=== PATIENT | female | born 1990 | race Caucasian/White ===

== ENCOUNTER 2020-12-08 16:40 | Inpatient (IN) ==
[2020-12-08] MEDS ORDERED: Haloperidol Lactate 5 MG/ML VIAL IM PRN (19:16)
[2020-12-08] MEDS ORDERED: Mag Hydrox/Al Hydrox/Simeth 30 ML UDC PO PRN (19:16)
[2020-12-08] MEDS ORDERED: MOM Conc 10 ML UD.LIQ PO PRN (19:16)
[2020-12-08] MEDS ORDERED: *HR* LORazepam 1 MG TABLET PO PRN (19:16)
[2020-12-08] MEDS ORDERED: *HR* LORazepam 2 MG/ML VIAL IM PRN (19:16)
[2020-12-08] MEDS ORDERED: haloperidoL 5 MG TABLET PO PRN (19:16)
[2020-12-08] MEDS ORDERED: Acetaminophen 325 MG TABLET PO PRN (19:16)
[2020-12-08] MEDS: Insulin DETEMIR 100 UNIT/ML X5UNITS SUBQ SCH (21:34)
[2020-12-08] MEDS: hydrOXYzine pamoate 25 MG CAPSULE PO PRN (21:35)
[2020-12-08] MEDS: traZODone 50 MG TABLET PO PRN (21:35)
[2020-12-09] MEDS: lisinopriL 20 MG TABLET PO SCH (09:13)
[2020-12-09] MEDS: hydroCHLOROthiazide 25 MG TABLET PO SCH (09:13)
[2020-12-09] MEDS: *HR* Metformin 500 MG TABLET PO SCH ×2 (09:13→17:04)
[2020-12-09] MEDS ORDERED: Ondansetron ODT 4 MG TAB.RAPDIS SL ONE (17:24)
[2020-12-09] MEDS: hydrOXYzine pamoate 25 MG CAPSULE PO PRN (20:27)
[2020-12-09] MEDS: Insulin DETEMIR 100 UNIT/ML X5UNITS SUBQ SCH (20:41)
[2020-12-10] MEDS: *HR* Metformin 500 MG TABLET PO SCH ×2 (08:59→17:01)
[2020-12-10] MEDS: hydroCHLOROthiazide 25 MG TABLET PO SCH (09:01)
[2020-12-10] MEDS: lisinopriL 20 MG TABLET PO SCH (09:01)
[2020-12-10] MEDS: traZODone 50 MG TABLET PO PRN (20:33)
[2020-12-10] MEDS: hydrOXYzine pamoate 25 MG CAPSULE PO PRN (20:34)
[2020-12-10] MEDS: Insulin DETEMIR 100 UNIT/ML X5UNITS SUBQ SCH (20:34)
[2020-12-11 09:26] VITALS: BP 102/72
[2020-12-11] MEDS: hydroCHLOROthiazide 25 MG TABLET PO SCH (09:49)
[2020-12-11] MEDS: lisinopriL 20 MG TABLET PO SCH (09:50)
[2020-12-11] MEDS: *HR* Metformin 500 MG TABLET PO SCH (09:50)
== END 2020-12-11 15:15 | disposition home or self-care (01) | DRG 885 ==
LOC: EMEROOARM 16:40 → 1ANU 19:10
PROVIDERS: ADMIT Psychiatry & Neurology Psychiatry; ATTEND Psychiatry & Neurology Psychiatry